=== PATIENT | female | born 1950 | race Caucasian/White ===

== ENCOUNTER 2017-07-06 11:04 | Outpatient (CLI) | payer OTHER | END 2017-07-06 11:16 | disposition home or self-care (01) | LOC: NUCLEAR 11:04 | DX: I20.1 Angina pectoris with documented spasm (principal) | CPT/HCPCS: 78452; 93017; A9500; J1250 ==

== ENCOUNTER 2019-01-03 10:20 | Outpatient (CLI) | payer OTHER | END 2019-01-03 10:29 | disposition home or self-care (01) | LOC: NUCLEAR 10:20 | DX: I20.1 Angina pectoris with documented spasm (principal) | CPT/HCPCS: 78452; 93017; A9500; J1250 ==

== ENCOUNTER 2024-12-06 10:36 | Outpatient (CLI) | payer OTHER | END 2024-12-06 10:38 | disposition home or self-care (01) | LOC: NUCLEAR 10:36 | PROVIDERS: ATTEND Internal Medicine Cardiovascular Disease | DX: I10 Essential (primary) hypertension (principal); I42.9 Cardiomyopathy, unspecified ==

== ENCOUNTER 2024-12-29 13:24 | Inpatient (IN) | payer OTHER ==
[~2024-12-29] VITALS: Ht 152.4 cm; Wt 82.1 kg
[2024-12-29] MEDS ORDERED: CLOPIDOGREL BIS75 MG PO (13:39)
[2024-12-29] MEDS ORDERED: AMLODIPINE-BEN1 EAC5 PO (13:39)
[2024-12-29] MEDS ORDERED: METHOTREXATE2.5 MG PO (13:39)
[2024-12-29] MEDS ORDERED: ATORVASTATIN CA20 MG PO (13:39)
[2024-12-29 14:47] LABS: BASO % 0.4 % (0.1-1.2); EOS # 0.02 (0.04-0.54); EOS % 0.3 % (0.7-7.0); LYMPH # 0.58 (1.18-3.74); LYMPH % 7.7 % (19.3-53.1); MEAN PLATELET VOLUME 10.70 fl (9.4-12.4); MONO # 0.05 (0.24-0.82); MONO % 0.7 % (4.7-12.5); NEUT # 6.80 (1.56-6.13); NEUT % 90.5 % (34.0-71.1); RED CELL DISTRIBUTION WIDTH 16.3 % (11.6-14.4)
[2024-12-29 14:48] LABS: ABG PH 7.370 (7.35-7.45); ABG PO2 99.6 mmHg (80-100); BICARBONATE 25.5 mmol/l (23-25)
[2024-12-29 14:54] LABS: o2 21 %
[2024-12-29 15:01] LABS: COVID-19 AG NEGATIVE (NEGATIVE)
[2024-12-29 15:07] LABS: ALT/SGPT 27.0 U/L (12-78); AST/SGOT 18.0 U/L (15-37); BILIRUBIN TOTAL 0.73 mg/dL (0.3-1.2); BUN CREA RATIO 24.0 (7.0-25.0); CREATININE SERUM 0.67 mg/dL (0.55-1.02); GFR 86.27; GLOBULINA 4.0 G/DL (2.4-3.5); GLUCOSE FASTING 152.0 mg/dL (65-100); OSMOLALITY SERUM 287.0 MOSM/KG (275-295)
[2024-12-29 19:35] LABS: URINE APPEARANCE Clear; URINE BILIRRUBIN Negative (NEGATIVE); URINE BLOOD Large; URINE COLOR Yellow; URINE KETONE Negative (NEGATIVE); URINE LEUKOCYTE Large; URINE NITRATE Negative; URINE PROTEIN Trace (NEGATIVE); URINE UROBILINOGEN 1.0 E.U./dl
[2024-12-29 19:39] LABS: URINE BACTERIA 1106.3 uL (0.0-1933); URINE EPITHELIAL CELLS 63.8 uL (0.0-38.8); URINE RBC 191.5 uL (0.0-20.8); URINE WBC 113.0 uL (0.0-23.2)
[2024-12-29 19:58] LABS: TYPE CELLS SQUAMOUS; URINE CAST 0.14 uL (0.0-1.40); URINE GLUCOSE 100 MG/DL (NEGATIVE)
[2024-12-29] MEDS ORDERED: IPRATROPIUM BROMIDE 0.5 MG/2.5 ML AMPUL.NEB IH STA (21:00)
[2024-12-29] MEDS ORDERED: LEVALBUTEROL HCL 0.63 MG/3 ML SOLUTION IH STA (21:00)
[2024-12-29] MEDS ORDERED: METHYLPREDNISOLONE SOD SUCC 125 MG VIAL IV STA (21:01)
[2024-12-29] MEDS ORDERED: IPRATROPIUM BROMIDE 0.5 MG/2.5 ML AMPUL.NEB IH SCH (21:28)
[2024-12-29] MEDS ORDERED: 0.9 % SODIUM CHLORIDE 1,000 ML IV SCH (21:30)
[2024-12-29] MEDS ORDERED: levoFLOXacin IN DEXTROSE 5 % 150 ML IV SCH (21:31)
[2024-12-29] MEDS ORDERED: MONTELUKAST SODIUM 10 MG TABLET PO SCH (21:32)
[2024-12-29] MEDS ORDERED: CODEINE/PROMETHAZINE HCL 1 ML ML PO ONE (21:45)
[2024-12-29] MEDS ORDERED: ACETAMINOPHEN 500 MG GEL..CAP PO PRN (21:45)
[2024-12-30] MEDS ORDERED: LEVALBUTEROL HCL 1.25 MG/3 ML SOLUTION IH SCH (01:00)
[2024-12-30] MEDS ORDERED: GUAIFEN/DEXTROMETHORPHAN/PE 10 ML BLIST.PACK PO SCH (01:00)
[2024-12-30] MEDS ORDERED: METHYLPREDNISOLONE SOD SUCC 40 MG VIAL IV SCH (01:00)
[2024-12-30] MEDS ORDERED: LEVALBUTEROL HCL 1.25 MG/3 ML SOLUTION IH ONE (01:38)
[2024-12-30] MEDS ORDERED: IPRATROPIUM BROMIDE 0.5 MG/2.5 ML AMPUL.NEB IH ONE (01:38)
[2024-12-30] MEDS ORDERED: METHYLPREDNISOLONE SOD SUCC 40 MG VIAL ONE (01:51)
[2024-12-30] MEDS ORDERED: GUAIFEN/DEXTROMETHORPHAN/PE 10 ML BLIST.PACK PO ONE (01:51)
[2024-12-30] MEDS ORDERED: levoFLOXacin IN DEXTROSE 5 % 5 MG/ML PIGGYBAG IV ONE (01:51)
[2024-12-30] MEDS ORDERED: MONTELUKAST SODIUM 10 MG TABLET PO ONE (01:51)
[2024-12-30 03:29] LABS: INR 1.1
[2024-12-30 04:00] VITALS: BP 144/80; O2SAT 95
[2024-12-30 08:55] VITALS: BP 150/74; O2SAT 98
[2024-12-30] MEDS ORDERED: ENOXAPARIN SODIUM 40 MG/0.4 ML SYRINGE SUBCUTANEO SCH (09:00)
[2024-12-30] MEDS ORDERED: AMLODIPINE BESYLATE 10 MG TABLET PO SCH (09:00)
[2024-12-30] MEDS ORDERED: FAMOTIDINE/PF 20 MG/2 ML VIAL IV SCH (10:00)
[2024-12-30 17:17] VITALS: BP 130/70; O2SAT 97
[2024-12-30] MEDS ORDERED: MEROPENEM 500 MG/VIAL VIAL IV SCH (18:00)
[2024-12-30] MEDS ORDERED: VANCOMYCIN HCL 1,000 MG VIAL IV SCH (21:00)
[2024-12-31 01:13] VITALS: BP 130/76; O2SAT 98
[2024-12-31] MEDS ORDERED: CLOPIDOGREL BISULFATE 75 MG TABLET PO SCH (09:00)
[2024-12-31] MEDS ORDERED: levoFLOXacin IN DEXTROSE 5 % 150 ML IV SCH (09:00)
[2024-12-31] MEDS ORDERED: LEVOTHYROXINE SODIUM 75 MCG TABLET PO SCH (09:00)
[2024-12-31 09:24] VITALS: BP 147/88; O2SAT 96
[2024-12-31 17:53] VITALS: BP 104/63
[2025-01-01 01:34] VITALS: BP 119/72; O2SAT 98
[2025-01-01 07:13] LABS: BASO % 0.1 % (0.1-1.2); EOS # 0.00 (0.04-0.54); EOS % 0.0 % (0.7-7.0); LYMPH # 0.83 (1.18-3.74); LYMPH % 8.1 % (19.3-53.1); MEAN PLATELET VOLUME 11.30 fl (9.4-12.4); MONO # 0.28 (0.24-0.82); MONO % 2.7 % (4.7-12.5); NEUT # 9.07 (1.56-6.13); NEUT % 88.4 % (34.0-71.1); RED CELL DISTRIBUTION WIDTH 16.3 % (11.6-14.4)
[2025-01-01 07:28] LABS: ALT/SGPT 29 U/L (12-78); AST/SGOT 22 U/L (15-37); BILIRUBIN TOTAL 0.40 mg/dL (0.3-1.2); BUN CREA RATIO 41 (7.0-25.0); CREATININE SERUM 0.56 mg/dL (0.55-1.02); GFR 106.11; GLOBULINA 3.0 G/DL (2.4-3.5); GLUCOSE FASTING 116 mg/dL (65-100); OSMOLALITY SERUM 288 MOSM/KG (275-295)
[2025-01-01 10:03] VITALS: BP 148/83; O2SAT 94
[2025-01-01 18:15] VITALS: BP 170/80
[2025-01-01 18:38] VITALS: BP 146/69; O2SAT 91
[2025-01-02 03:33] VITALS: BP 159/78; O2SAT 93
[2025-01-02 08:24] VITALS: BP 144/76; O2SAT 96
[2025-01-02 16:36] VITALS: BP 146/72; O2SAT 93
[2025-01-03 09:02] VITALS: BP 154/80; O2SAT 93
[2025-01-03 16:27] VITALS: BP 148/80; O2SAT 95
[2025-01-03] MEDS ORDERED: FAMOTIDINE/PF 20 MG/2 ML VIAL IV SCH (21:00)
[2025-01-03 23:00] VITALS: BP 130/77; O2SAT 100
[2025-01-04] MEDS ORDERED: METHYLPREDNISOLONE SOD SUCC 40 MG VIAL IV SCH ×2 (01:00→17:00)
[2025-01-04 08:09] VITALS: BP 160/90; O2SAT 96
[2025-01-04 17:13] VITALS: BP 149/96
[2025-01-04 23:00] VITALS: BP 143/89; O2SAT 99
[2025-01-05 08:46] VITALS: BP 137/80; O2SAT 96
[2025-01-05 17:20] VITALS: BP 155/97
[2025-01-06 02:17] VITALS: BP 132/82; O2SAT 100
[2025-01-06 08:55] VITALS: BP 146/87; O2SAT 96
[2025-01-06] MEDS ORDERED: ALBUTEROL SULFATE 3 ML/2.5 MG AMPUL.NEB IH SCH (09:50)
[2025-01-06 16:18] VITALS: BP 119/70; O2SAT 96
[2025-01-06] MEDS ORDERED: METHYLPREDNISOLONE SOD SUCC 40 MG VIAL IV SCH (17:00)
[2025-01-06] MEDS ORDERED: IPRATROPIUM/ALBUTEROL SULFATE 3 ML AMPUL.NEB IH SCH (20:00)
[2025-01-07] VITALS: BP 108/68; O2SAT 97
[2025-01-07] MEDS ORDERED: LEVOTHYROXINE SODIUM 75 MCG TABLET PO SCH (06:00)
[2025-01-07 09:08] VITALS: BP 117/89
== END 2025-01-07 15:25 | disposition home or self-care (01) | DRG 190 ==
LOC: ER 13:24 → MEDI 21:42 → SEC-K 21:42 → MEDI 23:35
PROVIDERS: General Practice; Internal Medicine Infectious Disease; ADMIT Internal Medicine; ATTEND Internal Medicine
PROC: BB24ZZZ Computerized Tomography (CT Scan) of Bilateral Lungs (ICD-10-PCS; principal; 2024-12-29)
PROC: 3E0F7GC Introduction of Other Therapeutic Substance into Respiratory Tract, Via Natural or Artificial Opening (ICD-10-PCS; 2024-12-30)
DX: J44.1 Chronic obstructive pulmonary disease with (acute) exacerbation (principal); J18.0 Bronchopneumonia, unspecified organism; J45.40 Moderate persistent asthma, uncomplicated; J84.10 Pulmonary fibrosis, unspecified; I10 Essential (primary) hypertension; E78.5 Hyperlipidemia, unspecified; Z88.0 Allergy status to penicillin